=== PATIENT | male | born 1995 | race African-American/Black ===

== ENCOUNTER 2024-01-20 01:05 | Emergency (ER) | payer OTHER ==
[~2024-01-20] VITALS: Ht 167.6 cm; Wt 104.2 kg
[2024-01-20 01:05] VITALS: BP 137/81; TEMP 97.6; O2SAT 98
[2024-01-20] MEDS ORDERED: PEPC1TAB5 PO (07:25)
[2024-01-20] MEDS ORDERED: PRED20TA PO (07:25)
[2024-01-20] MEDS: diphenhydrAMINE 25MG CAP PO ONE (07:45)
[2024-01-20] MEDS: predniSONE 20 MG TAB PO ONE (07:45)
== END 2024-01-20 08:00 | disposition home or self-care (01) ==
LOC: M ED 01:05
DX: M25.512 Pain in left shoulder (principal); L30.9 Dermatitis, unspecified; Z79.52 Long term (current) use of systemic steroids
CPT/HCPCS: 73030; 99282; J7512